=== PATIENT | female | born 1940 | race Caucasian/White ===

== ENCOUNTER 2018-10-29 16:14 | Observation (INO) ==
[2018-10-29] MEDS ORDERED: SODIUM CHLORIDE 0.9% INJ PRN (16:27)
[2018-10-29] MEDS ORDERED: PHENERGAN IV PRN (16:27)
[2018-10-29] MEDS ORDERED: TYLENOL PO PRN (16:27)
[2018-10-29] MEDS ORDERED: VENTOLIN HFA INH PRN (16:41)
[2018-10-29 17:24] LABS: HEMATOCRIT 43.3 % (37.0-47.0); HEMOGLOBIN 14.6 g/dL (12.0-16.0); MCH 30.4 PG (27-31); MCHC 33.7 g/dL (33-37); MPV 10.2 FL (7.4-10.4); RBC 4.81 XMIL (4.2-5.4); RDW 13.8 % (11.5-14.5); WBC 6.78 X1000 (4.8-10.8)
[2018-10-29 17:29] LABS: INR 2.05; PROTIME 24.7 Seconds (11.0-16.0)
[2018-10-29 17:55] LABS: POTASSIUM 3.9 mmol/L (3.5-5.1); SODIUM 142 mmol/L (136-145)
[2018-10-29 17:56] LABS: AGAP 16; ALB/GLOB RATIO 1.4; ALBUMIN 4.3 g/dL (3.5-5.0); ALKALINE PHOSPHATASE 127 U/L (32-104); AMYLASE 32 U/L (20-200); BUN 16 mg/dL (8-22); CALCIUM 9.1 mg/dL (8.8-10.2); CHLORIDE 108 mmol/L (98-107); COSMO 284; CREATININE 0.7 mg/dL (0.5-0.9); ESTIMATED GFR > 60; GLUCOSE 100 mg/dL (70-104); GOT 15 U/L (10-30); GPT 11 U/L (10-36); LIPASE 24 U/L (13-60); TCO2 18 mmol/L (25-35); TOTAL BILIRUBIN 0.32 mg/dL (0.20-1.00); TOTAL PROTEIN 7.3 g/dL (6.3-8.3)
--- NOTE | 2018-10-29 19:33 | Diag Imaging Result Doc PS360 ---
EXAM: CT ANGIOGRM PULMONARY ARTERIES HISTORY: dyspnea with hx PTE TECHNIQUE: CT chest with intravenous contrast. Pulmonary arterial protocol with MIP images. COMPARISON: 08/16/2011 FINDINGS: Normal opacification of the pulmonary arteries and their major branches. No thoracic aortic aneurysm or dissection. Borderline mildly prominent heart. No pleural effusions. No enlarged lymph nodes. There are no infiltrates. No bronchiectasis. IMPRESSION: No pulmonary emboli. This exam was performed using automated exposure control, adjustment of mA or kV according to patient size, and/or use of iterative reconstruction technique. Electronically signed by Salinas Morejon 10/29/2018 7:31 PM
--- NOTE | 2018-10-29 19:34 | Diag Imaging Result Doc PS360 ---
EXAM: CHEST-2 VIEWS HISTORY: dyspnea TECHNIQUE: Chest two views COMPARISON: 06/04/2018 FINDINGS: The lungs are well expanded. The heart is not enlarged. The vessels are not distended. There are no infiltrates. No pleural effusions. IMPRESSION: No acute abnormality. Electronically signed by Salinas Morejon 10/29/2018 7:31 PM
[2018-10-29] MEDS ORDERED: COUMADIN PO SCH (21:00)
[2018-10-29] MEDS: XANAX PO SCH (23:11)
[2018-10-30] MEDS: COLACE PO SCH ×3 (03:05→08:14)
[2018-10-30] MEDS ORDERED: PROTONIX PO SCH (07:00)
[2018-10-30] MEDS ORDERED: SYNTHROID PO SCH (07:00)
--- NOTE | 2018-10-30 07:02 | EKG Report ---
Test Performed on : 10/30/2018 06:26:53 AM Test Reason : chest pain Blood Pressure : / mmHG Vent. Rate : 054 BPM Atrial Rate : 054 BPM P-R Int : 184 ms QRS Dur : 088 ms QT Int : 494 ms P-R-T Axes : 062 018 134 degrees QTc Int : 468 ms Sinus bradycardia. Nonspecific ST and T wave abnormality Abnormal ECG When compared with ECG of 16-NOV-2015 17:13, No significant change was found Confirmed by Juan Carlos HAMILTON, Jus Brooke ([id number]) on 11/02/2018 11:29:07 AM
[2018-10-30] MEDS: XANAX PO SCH (08:11)
[2018-10-30] MEDS ORDERED: ZOLOFT PO SCH ×2 (09:00)
[2018-10-30] MEDS ORDERED: TOPROL XL PO SCH ×2 (09:00)
[2018-10-30] MEDS ORDERED: LEXISCAN ONE (11:30)
[2018-10-30 14:15] LABS: URINE SOURCE CLEAN CATCH
[2018-10-30 14:20] LABS: BILIRUBIN URINE NEGATIVE (NEGATIVE); BLOOD URINE NEGATIVE (NEGATIVE); COLOR YELLOW; GLUCOSE URINE NEGATIVE (NEGATIVE); KETONE URINE NEGATIVE (NEGATIVE); LEUKOCYTES URINE NEGATIVE (NEGATIVE); NITRITE URINE NEGATIVE (NEGATIVE); PROTEIN URINE NEGATIVE (NEGATIVE); SP GRAVITY URINE 1.028; TURBIDITY URINE CLEAR (CLEAR); UROBILINOGEN URINE NORMAL (NORMAL)
[2018-10-30 14:21] LABS: UR EPITHELIAL CELLS <10 /HPF (<10); URINE BACTERIA NEGATIVE /HPF; URINE RBC <10 /HPF (<10); URINE WBC <10 /HPF (<10)
--- NOTE | 2018-10-30 15:22 | Diag Imaging Result Document ---
PROCEDURE NAME: MYOCARDIAL PERF SCAN, STR/REST - 10/30/2018 INDICATION: Chest pain. PROCEDURES PERFORMED: 1. Lexiscan stress. 2. One-day stress rest myocardial perfusion imaging. PROCEDURE DETAIL: Ms. Cerna was brought to the nuclear laboratory and had a resting study with injection of 11.6 mCi of technetium-99m sestamibi with usual imaging protocol utilized. Subsequently came back and had a Lexiscan stress and at peak stress, was injected with 33.8 mCi of technetium-99m sestamibi with usual imaging protocol utilized. FINDINGS: LEXISCAN STRESS RESULTS: 1. Baseline EKG shows sinus rhythm. Low voltage. 2. Lexiscan stress did not demonstrate any clear evidence of ischemic related EKG changes or significant arrhythmias. PERFUSION IMAGING RESULTS: 1. No evidence of abnormal extracardiac uptake. 2. TID ratio is 1.0. 3. Perfusion imaging demonstrates normal homogenous uptake of radiotracer throughout the myocardial segments. No evidence of stress-related defects. 4. Normal ejection fraction 89%. End-diastolic volume 75, end systolic volume 8. Normal wall motion. cc: MD Juilus Hernandez MD
[2018-10-30 15:43] VITALS: BP 130/65
--- NOTE | 2018-10-31 05:32 | DISCHARGE SUMMARY ---
ADMISSION DATE: 10/29/2018 DISCHARGE DATE: 10/30/2018 DISCHARGE DIAGNOSES: 1. Chest pain. 2. History of deep venous thrombosis with embolism. 3. Diabetes mellitus. 4. Hypertension. 5. Gastroesophageal reflux disease. OPERATIVE PROCEDURES: None. OTHER TESTING: Myocardial perfusion scan. HOSPITAL COURSE: This 78-year-old white female presented to Dr. Maguire office with a complaint of chest pain. Dr. Maguire was appropriately concerned due to her medical history and risk factors and put her in the hospital for observation. She had no further chest pain during her stay at the hospital. She had 3 sets of negative enzymes and normal blood sugars throughout her hospitalization. On the day after admission, I saw the patient in the morning to confirm the presence or absence of symptoms and then scheduled a chemical Myoview test in nuclear medicine. At 4 p.m., I was able to find a recently dictated note by Dr. Tristin Antony, who read her perfusion scan. She had a normal ejection fraction and no evidence of reversible ischemia. Patient is discharged home on all of her previous medications. She is instructed to follow up with Dr. Maguire in regard to any GI issues that need to be addressed. cc: MD Gege Huber MD
== END 2018-10-30 16:36 | disposition home or self-care (01) ==
LOC: DIRADM → 4N 16:14
PROVIDERS: ADMIT Internal Medicine; ATTEND Internal Medicine
CPT/HCPCS: 71020; 71046; 71275; 78452; 80053; 81001; 82150; 82550; 82948; 83690; 84484; 85027; 85610; 93005; 93010; 93017; 94760; A9270; A9500; J2785; Q9967; XXXXX